=== PATIENT | male | born 1990 ===

== ENCOUNTER 2017-11-05 08:56 | Emergency (ER) | payer OTHER ==
[~2017-11-05] VITALS: Ht 175.3 cm; Wt 73.6 kg
[2017-11-05 08:58] VITALS: BP 137/87; PULSE 84; RESP 16; TEMP 98.1; O2SAT 100
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
[2017-11-05] MEDS ORDERED: TETANUS/DIPHTHERIA TOXOID ADULT 0.5 ML VIAL IM ONE (09:45)
== END 2017-11-05 10:01 | disposition home or self-care (01) ==
LOC: PHED 08:56
DX: H11.33 Conjunctival hemorrhage, bilateral (principal); R04.0 Epistaxis; Z23 Encounter for immunization; V89.2XXA Person injured in unspecified motor-vehicle accident, traffic, initial encounter
CPT/HCPCS: 90471; 90714